=== PATIENT | male | born 1975 | race Caucasian/White ===

== ENCOUNTER 2017-05-25 14:29 | Emergency (ER) | payer SELFPAY ==
--- NOTE | 2017-05-25 16:09 | Emergency Department Record ---
History of Present Illness - General Chief complaint: Extremity Problem Stated complaint: INJURY TO HAND Time Seen by Provider: 05/25/17 15:06 Source: Patient Mode of Arrival: Ambulatory - History of Present Illness Initial comments: patient got his right hand caught in a press at work. partial amputation of the right middle finger and partial nail avulsion of the right ring finger. Onset/Timin -: Minutes(s) Location: Right, Hand History of Same: No Severity scale (1-10): 8 Quality: Sharp Consistency: Constant Improves with: Nothing Worsens with: Nothing Associated Symptoms: Denies other symptoms - Related Data Home Medications Medication Instructions Recorded Confirmed Last Taken Atorvastatin Calcium [Lipitor] 20 mg PO DAILY 05/25/17 05/25/17 05/25/17 Fosinopril Sodium [Monopril] 20 mg PO ASDIR 05/25/17 05/25/17 05/25/17 Hydrochlorothiazide [Hctz 12.5MG] 12.5 mg PO DAILY 05/25/17 05/25/17 05/25/17 Metformin HCl [Metformin HCl] 850 mg PO ASDIR 05/25/17 05/25/17 05/25/17 Metoprolol Tartrate [Lopressor] 50 mg PO DAILY 05/25/17 05/25/17 05/25/17 Sitagliptin Phosphate [Januvia] 50 mg PO ASDIR 05/25/17 05/25/17 05/25/17 Previous Rx's Medication Instructions Recorded Cephalexin [Keflex] 500 mg PO QID #40 cap 05/25/17 Hydrocodone/Acetaminophen [[place] 1 each PO Q4HR #30 tablet 05/25/17 5-325 Tablet] Allergies Allergy/AdvReac Type Severity Reaction Status Date / Time No Known Drug Allergies Allergy Verified 05/25/17 14:45 Travel Screening - Travel/Exposure Within Last 30 Days Have you traveled within the last 30 days?: No - Travel/Exposure Within Last Year Have you traveled outside the [place] in the last year?: No - Additonal Travel Details Have you been exposed to anyone with a communicable illness?: No - Travel Symptoms Symptom Screening: None Review of Systems Reviewed: No additional complaints except as noted below Constitutional: Reports: As per HPI. Denies: Chills, Fever, Malaise, Night sweats, Weakness, Weight change Eyes: Reports: As per HPI. Denies: Eye discharge, Eye pain, Photophobia, Vision change ENT: Reports: As per HPI. Denies: Congestion, Dental pain, Ear pain, Epistaxis , Hearing loss, Throat pain Respiratory: Reports: As per HPI. Denies: Cough, Dyspnea, Hemoptysis, Stridor, Wheezes Cardiovascular: Reports: As per HPI. Denies: Arrhythmia, Chest pain, Dyspnea on exertion, Edema, Murmurs, Orthopnea, Palpitations, Paroxysmal nocturnal dyspnea, Rheumatic Fever, Syncope Endocrine: Reports: As per HPI. Denies: Fatigue, Heat or cold intolerance, Polydipsia, Polyuria Gastrointestinal: Reports: As per HPI. Denies: Abdominal pain, Constipation, Diarrhea, Hematemesis, Hematochezia, Melena, Nausea, Vomiting Genitourinary: Reports: As per HPI. Denies: Dysuria, Frequency, Hematuria, Incontinence, Retention, Testicular pain, Testicular mass, Urgency Musculoskeletal: Reports: As per HPI. Denies: Arthralgia, Back pain, Gout, Joint swelling, Myalgia, Neck pain Skin: Reports: As per HPI. Denies: Bruising, Change in color, Change in hair/ nails, Lesions, Pruritus, Rash Neurological: Reports: As per HPI. Denies: Abnormal gait, Confusion, Headache, Numbness, Paresthesias, Seizure, Tingling, Tremors, Vertigo, Weakness Psychiatric: Reports: As per HPI. Denies: Anxiety, Auditory hallucinations, Depression, Homicidal thoughts, Suicidal thoughts, Visual hallucinations Hematological/Lymphatic: Reports: As per HPI. Denies: Anemia, Blood Clots, Easy bleeding, Easy bruising, Swollen glands Past Medical History - SOCIAL HISTORY Smoking Status: Never smoker Alcohol Use: None Drug Use: None - RESPIRATORY Hx Respiratory Disorders: No - CARDIOVASCULAR Hx Cardio Disorders: Yes Hx Hypertension: Yes - NEURO Hx Neuro Disorders: No - GI Hx GI Disorders: No - Hx Genitourinary Disorders: No - ENDOCRINE Hx Endocrine Disorders: Yes Hx Diabetes: Yes - MUSCULOSKELETAL Hx Musculoskeletal Disorders: No - PSYCH Hx Psych Problems: No - HEMATOLOGY/ONCOLOGY Hx Hematology/Oncology Disorders: No Family Medical History Any Significant Family History?: No Physical Exam - General General Appearance: Alert, Oriented x3, Cooperative, Mild distress - Head Head exam: Normal inspection - Eye Eye exam: Normal appearance, PERRL Pupils: Normal accommodation - ENT ENT exam: Normal exam, Mucous membranes moist, Normal external ear exam, Normal orophraynx, TM's normal bilaterally Ear exam: Normal external inspection. negative: External canal tenderness Nasal Exam: Normal inspection. negative: Discharge, Sinus tenderness Mouth exam: Normal external inspection, Tongue normal Teeth exam: Normal inspection. negative: Dental caries Throat exam: Normal inspection. negative: Tonsillar erythema, Tonsillar exudate - Neck Neck exam: Normal inspection, Full ROM. negative: Tenderness - Respiratory Respiratory exam: Normal lung sounds bilaterally. negative: Respiratory distress - Cardiovascular Cardiovascular Exam: Regular rate, Normal rhythm, Normal heart sounds - GI/Abdominal GI/Abdominal exam: Soft, Normal bowel sounds. negative: Tenderness - Rectal Rectal exam: Deferred - exam: Deferred - Extremities Extremities exam: Normal capillary refill, Tenderness (volar pad amputation of the right middle finger and partail nail avulsion right ring ringer) - Back Back exam: Reports: Normal inspection, Full ROM. Denies: Muscle spasm, Rash noted, Tenderness - Neurological Neurological exam: Alert, Normal gait, Oriented X3, Reflexes normal - Psychiatric Psychiatric exam: Normal affect, Normal mood - Skin Skin exam: Dry, Intact, Normal color, Warm Course Vital Signs 05/25/17 14:51 Temperature 99 F Pulse Rate 102 H Respiratory 20 Rate Blood Pressure 143/114 Pulse Ox 99 Medical Decision Making - Data Complexity MDM Data: X-Ray Ordered and/or Reviewed (middle finger marco fracture) Disposition Clinical Impression: Finger amputation, traumatic Qualifiers: Encounter type: initial encounter Qualified Code(s): S68.119A - Complete traumatic metacarpophalangeal amputation of unspecified finger, initial encounter Disposition: Home, Self-Care Condition: (1) Good Instructions: Finger Amputation (ED) Additional Instructions: follow up with Dr Matthews on sunday at [id number]. Prescriptions: Hydrocodone/Acetaminophen [[place] 5-325 Tablet] 1 each PO Q4HR #30 tablet Cephalexin [Keflex] 500 mg PO QID #40 cap Forms: Patient Portal Access Time of Disposition: 16:55 Quality - Quality Measures Quality Measures: N/A - Blood Pressure Screening Does Patient Have Any of the Following: No Blood Pressure Classification: Hypertensive Reading Systolic Measurement: 143 Diastolic Measurement: 114 Screening for High Blood Pressure: < First Hypertensive BP, F/U Documented > [ [id number]] First Hypertensive Follow-up Interventions: Referral to alternative/primary care provider.
[2017-05-25] MEDS ORDERED: CEFAZOLIN 1G VIAL IM ONE (16:40)
--- NOTE | 2017-05-28 13:04 | RADIOLOGY REPORT ---
EXAM: RIGHT HAND HISTORY: CAUGHT RIGHT HAND IN A PRESS AT WORK, INJURY TO MIDDLE AND INDEX FINGERS. TECHNIQUE: Three views of the right hand were obtained. Comparison: None. Encounter: Initial. FINDINGS: There is marked deformity of the soft tissues of the distal end of the third finger probably representing an amputation of the tip of the right third finger. There is some overlying gauze or other dressing which creates considerable artifact. On the AP view there is a suggestion of very shallow loss of the radial aspect of the tuft of the distal phalanx of the third finger although not confirmed on the oblique or lateral view, however, particularly on the oblique view the tip of the tuft may be uncovered by amputated soft tissue. There is prominent soft tissue swelling overlying the level of the MCP joints with soft tissue swelling extending into the second and third fingers and possibly also the thumb. Elsewhere the right hand appears essentially negative. IMPRESSION: 1. MARKED SOFT TISSUE DEFORMITY DISTALLY IN THE THIRD FINGER CONSISTENT WITH SOFT TISSUE AMPUTATION POSSIBLY DOWN TO THE SURFACE OF THE TUFT OF THE DISTAL PHALANX. THERE IS QUESTIONABLY A THIN LAYER OF BONE LOSS ALONG THE RADIAL ASPECT OF THE TUFT OF THE DISTAL PHALANX OF THE THIRD FINGER WELL. 2. SOFT TISSUE SWELLING INVOLVING SEVERAL FINGERS AND ALONG THE DORSUM OF THE HAND AT THE MCP JOINTS. JOB NUMBER: [id number] [facility]
== END 2017-05-25 17:08 | disposition home or self-care (01) ==
LOC: ER 14:29
DX: S68.122A Partial traumatic metacarpophalangeal amputation of right middle finger, initial encounter (principal); W31.89XA Contact with other specified machinery, initial encounter; Y92.63 Factory as the place of occurrence of the external cause; Y99.0 Civilian activity done for income or pay
CPT/HCPCS: 96372; 99283; 99284; J0690